=== PATIENT | male | born 1970 | race Caucasian/White ===

== ENCOUNTER → 2020-07-05 09:35 | Outpatient (BNVA) | payer MEDICAID, SELFPAY | PROVIDERS: Family Provider Family Medicine; Referring Provider Nurse Practitioner Family; Visit Provider Anesthesiology Pain Medicine | DX: M51.16 Intervertebral disc disorders with radiculopathy, lumbar region (principal); M47.816 Spondylosis without myelopathy or radiculopathy, lumbar region; M54.9 Dorsalgia, unspecified; M96.1 Postlaminectomy syndrome, not elsewhere classified; M25.562 Pain in left knee; F17.210 Nicotine dependence, cigarettes, uncomplicated; Z79.891 Long term (current) use of opiate analgesic | CPT/HCPCS: 99205 ==

== ENCOUNTER → 2021-02-24 09:58 | Outpatient (BNVA) | payer MEDICARE, MEDICAID, SELFPAY | PROVIDERS: Family Provider Family Medicine; PCP Nurse Practitioner Family; Visit Provider Internal Medicine Rheumatology | DX: M15.9 Polyosteoarthritis, unspecified (principal); R21 Rash and other nonspecific skin eruption; Z79.899 Other long term (current) drug therapy; Z11.59 Encounter for screening for other viral diseases; Z11.1 Encounter for screening for respiratory tuberculosis; N18.9 Chronic kidney disease, unspecified; J44.9 Chronic obstructive pulmonary disease, unspecified; F17.210 Nicotine dependence, cigarettes, uncomplicated; Z96.653 Presence of artificial knee joint, bilateral | CPT/HCPCS: 99204 ==

== ENCOUNTER 2021-02-24 13:09 | Outpatient (CLI) | payer MEDICAID, MEDICARE, SELFPAY ==
--- NOTE | 2021-02-24 13:20 | XRR_ITS ---
PROCEDURE INFORMATION: Exam: XR Right Hand Exam date and time: 02/24/2021 1:29 PM Age: 50 years old Clinical indication: Pain and screening exam; Z79.899 - other skilled nursing (current) drug therapy; Hand; Bilateral TECHNIQUE: Imaging protocol: XR Right hand. Views: 3 or more views. COMPARISON: No relevant prior studies available. FINDINGS: Bones/joints: No fracture. No dislocation. There is joint space narrowing at the 2nd and 3rd metacarpophalangeal joints. No juxta-articular osteopenia. There is widening at the scapholunate interval compatible with prior ligamentous injury and scapholunate dissociation. 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 No erosions. Soft tissues: No acute soft tissue abnormality. XR/XR hand RT min 3V* [id number] IMPRESSION: 1. Degenerative changes. 2. Prior scapholunate dissociation.
--- NOTE | 2021-02-24 13:20 | XRR_ITS ---
PROCEDURE INFORMATION: Exam: XR Chest Exam date and time: 02/24/2021 1:29 PM Age: 50 years old Clinical indication: Pain and screening exam; Other screening; Other: Bilateral hands and feet; Additional info: Z79.899 - other shelter (current) drug therapy TECHNIQUE: Imaging protocol: XR of the chest. Views: 2 views. COMPARISON: No relevant prior studies available. FINDINGS: Lungs: There is left basilar atelectasis. Pleural spaces: No pleural effusion or pneumothorax. Heart/Mediastinum: The cardiac silhouette is not enlarged. The mediastinal contours are normal. Bones/joints: No acute osseous abnormality. Soft tissues: Bilateral extrapleural fat deposition. XR/XR chest 2V* [id number] IMPRESSION: Left basilar atelectasis.
--- NOTE | 2021-02-24 13:20 | XRR_ITS ---
PROCEDURE INFORMATION: Exam: XR Left Hand Exam date and time: 02/24/2021 1:29 PM Age: 50 years old Clinical indication: Pain and screening exam; Z79.899 - other [facility] (current) drug therapy; Hand; Bilateral TECHNIQUE: Imaging protocol: XR Left hand. Views: 3 or more views. COMPARISON: No relevant prior studies available. FINDINGS: Bones/joints: There is joint space narrowing with subchondral eburnation and cyst formation at the radiocarpal joint space and ulnar carpal joint space. Degenerative change with joint space narrowing and osteophyte formation at the distal radiocarpal joint. Subchondral cysts present at the base of the 2nd metacarpal, hamate, and trapezoid. There is widening of the scapholunate interval compatible with prior ligamentous injury and scapholunate dissociation. 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 There is narrowing of the 3rd metacarpophalangeal joint. No juxta-articular osteopenia. Soft tissues: No acute soft tissue abnormality. XR/XR hand LT min 3V* [id number] IMPRESSION: 1. Degenerative changes. 2. Prior scapholunate dissociation.
--- NOTE | 2021-02-24 13:20 | XRR_ITS ---
PROCEDURE INFORMATION: Exam: XR Right Foot Exam date and time: 02/24/2021 1:29 PM Age: 50 years old Clinical indication: Pain and screening exam; Z79.899 - other care home (current) drug therapy; Foot; Bilateral TECHNIQUE: Imaging protocol: XR Right foot. Views: 3 or more views. COMPARISON: No relevant prior studies available. FINDINGS: Bones/joints: No fracture. No dislocation. Mild degenerative changes at the 1st metatarsophalangeal joint. Erosions in the head of the 3rd metatarsal, 3rd proximal phalanx and head of the 5th metatarsal. Soft tissues: No acute soft tissue abnormality. XR/XR foot RT min 3V* [id number] IMPRESSION: 1. Mild degenerative changes at the 1st metatarsophalangeal joint. 2. Nonspecific multifocal erosions.
--- NOTE | 2021-02-24 13:20 | XRR_ITS ---
PROCEDURE INFORMATION: Exam: XR Left Foot Exam date and time: 02/24/2021 1:29 PM Age: 50 years old Clinical indication: Pain and screening exam; Z79.899 - other retirement (current) drug therapy; Foot; Bilateral TECHNIQUE: Imaging protocol: XR Left foot. Views: 3 or more views. COMPARISON: No relevant prior studies available. FINDINGS: Bones/joints: No fracture. No dislocation. Periarticular erosions involving the medial aspect of the 1st distal and proximal phalanges bridging the interphalangeal joint. This might be due to gout though the location is atypical. Small additional juxta-articular erosion involving the medial base of the 2nd proximal phalanx. Soft tissues: No acute soft tissue abnormality. XR/XR foot LT min 3V* [id number] IMPRESSION: Nonspecific erosions.
[2021-02-24 14:57] LABS: 25 Hydroxy Vitamin D 48 ng/mL (30-100)
[2021-02-24 15:17] LABS: Hepatitis B Core AB, Total Non-Reactive (Nonreactive); Hepatitis B Surface Antigen Non-Reactive (Nonreactive); Hepatitis C Virus Antibody Non-Reactive (Nonreactive)
[2021-02-25 13:13] LABS: Cyclic Citrullinated Peptide >250 UNITS
[2021-02-26 14:57] LABS: Quantiferon Mitogen 8.31 IU/mL; Quantiferon Nil 0.01 IU/mL; Quantiferon TB Gold NEGATIVE (NEGATIVE)
== END 2021-02-24 13:10 | disposition home or self-care (01) ==
PROVIDERS: PCP Nurse Practitioner Family; Visit Provider Internal Medicine Rheumatology
DX: M06.9 Rheumatoid arthritis, unspecified (principal); Z79.899 Other long term (current) drug therapy; Z11.59 Encounter for screening for other viral diseases; Z11.1 Encounter for screening for respiratory tuberculosis
CPT/HCPCS: 36415; 71046; 73130; 73630; 82306; 86431; 86480; 86704; 86803; 87340

== ENCOUNTER → 2021-12-30 13:37 | Outpatient (BNVA) | payer MEDICARE, MEDICAID, SELFPAY | PROVIDERS: PCP Nurse Practitioner Family; Visit Provider Internal Medicine Rheumatology | DX: M05.79 Rheumatoid arthritis with rheumatoid factor of multiple sites without organ or systems involvement (principal); Z79.899 Other long term (current) drug therapy; N18.9 Chronic kidney disease, unspecified; J44.9 Chronic obstructive pulmonary disease, unspecified; S81.001A Unspecified open wound, right knee, initial encounter; Y83.8 Other surgical procedures as the cause of abnormal reaction of the patient, or of later complication, without mention of misadventure at the time of the procedure; Y79.2 Prosthetic and other implants, materials and accessory orthopedic devices associated with adverse incidents; Z96.653 Presence of artificial knee joint, bilateral; Z71.85 Encounter for immunization safety counseling; F17.200 Nicotine dependence, unspecified, uncomplicated | CPT/HCPCS: 99214 ==